=== PATIENT | male | born 1995 | race African-American/Black ===

== ENCOUNTER 2023-07-07 00:59 | Emergency (ER) | payer BC, SELFPAY ==
[2023-07-07 01:01] VITALS: BP 137/82; PULSE 86; RESP 18; TEMP 37.1; O2SAT 99; BMI 20.1
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
[2023-07-07] MEDS: Ibuprofen 400 MG Tablet 800 MG PO (02:25)
--- OUTSIDE RECORDS SUMMARY | 2023-07-07 02:36 | XMS RPT_ITS | CCD ---
Author Name Unknown Address [address] [facility] [address] [place] [address] Organization [facility] Care Team Providers Care Servicer Name Role Phone Unavailable Primary Care Provider UnavailJUDE Mora Attending Unavailable NELSON SAUCEDO Referring Unavailable ASIM GUEVARA Primary Care Unavailable NELSON SAUCEDO Referring Unavailable Medications Current Medications Medication Drug Class(es) Dates Sig (Normalized) Sig (Original) naproxen 375 mg oral tablet (4 sources) Nonsteroidal Anti-inflammatory Drug Start: 03-07-2022 End: 03-22-2022 take 1 tablet by mouth twice daily at mealtime for pain naproxen (NAPROSYN) 375 mg tablet Indications: Acute pain of left knee , Injury of right knee, initial encounter , Sprain of left knee, unspecified ligament, initial encounter Take 1 tablet by mouth twice daily with meals for 15 days. for pain. Take with food. 30 tablet 0 03/07/2022 03/22/2022 Active Problems Problem Classification Problem Date Documented Date Episodic/Chronic Immunizations and screening for infectious disease (2 sources) Patient encounter status; Translations: [Encounter for screening for human immunodeficiency virus [HIV]] Episodic Joint disorders and dislocations; trauma-related (8 sources) Tear of medial meniscus of knee; Translations: [Other tear of medial meniscus, current injury, left knee, initial encounter] Onset: 06-04-2023 Episodic Osteoarthritis (1 source) Osteoarthritis of left knee joint; Translations: [Unilateral primary osteoarthritis, left knee] Chronic Other injuries and conditions due to external causes (2 sources) Injury of right knee; Translations: [Unspecified injury of right lower leg, initial encounter] Episodic Other non-traumatic joint disorders (2 sources) Pain in left knee; Translations: [Pain in joint, lower leg] Episodic Other screening for suspected conditions (not mental disorders or infectious disease) (2 sources) Serum creatinine raised; Translations: [Other specified abnormal findings of blood chemistry] Onset: 06-10-2023 06-05-2023 Episodic Sprains and strains (2 sources) Sprain of left knee; Translations: [Sprain of unspecified site of left knee, initial encounter] Episodic Results Test Name Value Interpretation Reference Range Facil ity Vital Signs Date Time Vital Sign Value Performing Clinician Joselito melo 06-04-2023 08:55-0500 Body height 181.6 cm Jude Swartz MD Work Phone: [facility] 06-04-2023 08:55-0500 Body temperature 98.01 [degF] Jude Swartz MD Work Phone: [facility] 06-04-2023 08:55-0500 Body weight 61.69 kg Jude Swartz MD Work Phone: [facility] 06-04-2023 08:55-0500 Diastolic blood pressure 72 mm[Hg] Jude Swartz MD Work Phone: [facility] 06-04-2023 08:55-0500 Heart rate 73 /min Jude Swartz MD Work Phone: [facility] 06-04-2023 08:55-0500 Respiratory rate 16 /min Jude Swartz MD Work Phone: [facility] 06-04-2023 08:55-0500 SaO2% (BldA) [Mass fraction] 98 % Jude Swartz MD Work Phone: [facility] 06-04-2023 08:55-0500 Systolic blood pressure 126 mm[Hg] Jude Swartz MD Work Phone: [facility] 04-29-2022 08:48-0400 Body height 190.5 cm Ravi Rivera MD Work Phone: [facility] 04-29-2022 08:48-0400 Body weight 62.6 kg Ravi Rivera MD Work Phone: [facility] 04-29-2022 08:48-0400 Respiratory rate 20 /min Ravi Rivera MD Work Phone: [facility] 03-18-2022 07:41-0400 Body height 182.9 cm Ravi Rivera MD Work Phone: [facility] 03-18-2022 07:41-0400 Body weight 62.6 kg Ravi Rivera MD Work Phone: [facility] 03-18-2022 07:41-0400 Respiratory rate 20 /min Ravi Rivera MD Work Phone: [facility] 03-07-2022 15:36-0400 Body height 181 cm Kenyon Patrick MD Work Phone: [facility] 03-07-2022 15:36-0400 Body weight 62.6 kg Kenyon Patrick MD Work Phone: [facility] 03-07-2022 15:36-0400 Diastolic blood pressure 72 mm[Hg] Kenyon Patrick MD Work Phone: [facility] 03-07-2022 15:36-0400 Heart rate 69 /min Kenyon Patrick MD Work Phone: [facility] 03-07-2022 15:36-0400 Respiratory rate 18 /min Kenyon Patrick MD Work Phone: [facility] 03-07-2022 15:36-0400 SaO2% (BldA) [Mass fraction] 99 % Kenyon Patrick MD Work Phone: [facility] 03-07-2022 15:36-0400 Systolic blood pressure 133 mm[Hg] Kenyon Patrick MD Work Phone: [facility] Encounters Encounter Date Encounter Type Care Provider Facility Start: 06-10-2023 End: 06-11-2023 ambulatory ASIM GUEVARA Facility:[facility] Start: 06-05-2023 ambulatory Jude Swartz MD Work Phone: [facility] ([facility]) Procedures Date Procedure Procedure Detail Performing Clinician Start: 06-10-2023 Antibody screen JUDE SWARTZ Plan of Treatment Date Care Activity Detail Author Start: 06-04-2024 Covid-19 Vaccine (#1) Covid-19 Vacci ne (#1) [facility] Payers Date Payer Category Payer Unknown [id number] 2022 Unknown [id number] Social History Date Type Detail Facility [facility]: [facility]07[facility] Start: 03-07-2022 Tobacco use and exposure Smoke less tobacco non-user [facility] Start: 03-07-2022 End: 06-04-2023 Alcohol intake Current drinker of alcohol (finding) [facility] Start: 03-07-2022 History SDOH Alcohol Comment Very rare [facility] Start: 1995 Sex Assigned At Not on file [facility] Start: 02-25-2022 End: 04-29-2022 Exposure to SARS-CoV-2 (event) Not sure [facility] Start: 06-04-2023 History of Social function [facility] Start: 06-04-2023 Tobacco use panel [facility] Adult Depression Scr eening Assessment 0 [facility] (I/We) worried whemarielle er (my/our) food would run out before (I/we) got money to buy more. Never true [facility] Clinical Notes 03-07-2022 to 06-05-2023 Telephone Encounter - Jude Swartz MD - 06/05/2023 7:10 PM Nelson Montelongo MD - 06/04/2023 2:48 PM Jude Shea MD - 06/04/2023 9:14 AM ESTPatient Instructions Note Date & Type Note Facility 06-05-2023 Miscellaneous Notes Please let the patient know that his labs are all normal except his creatinine which is slightly elevated above the normal levels, although it does appear to be similar to what it was 1 year ago. The patient is advised to maintain good oral hydration levels. We will recheck his kidney function and check urine tests next week to monitor if his creatinine levels remain stable or not. documented in this encounter [facility] 06-04-2023 Note HNO ID: [id number] Author: Nelson Saucedo MD Service: ? Author Type: Physician Type: Progress Notes Filed: 06/04/2023 2:48 PM Note Text: Attending Note I discussed with resident. The patient was not examined by the attending. I reviewed the resident's note. I agree with the resident's assessment and plan unless otherwise noted. Signature: Nelson Saucedo MD Date: 06/04/2023. Time: 2:48 PM [facility] 06-04-2023 History of Presen t illness Narrative Attending Note I discussed with resident. The patient was not examined by the attending. I reviewed the resident's note. I agree with the resident's assessment and plan unless otherwise noted. Signature: Nelson Saucedo MD Date: 06/04/2023. Time: 2:48 PM Images from the original note were not included. [facility] Jude Swartz MD ASSESSMENT/PLAN: 1. Encounter for medical examination to establish care - ICD9: V70.9, ICD10: Z00.00 (primary diagnosis) - Counseled on healthy diet and regular exercise - CBC - COMP METABOLIC PANEL - LIPID PANEL BASIC - HGB A1C 2. Acute medial meniscus tear of left knee, sequela - ICD9: 905.7, ICD10: S83.242S -Was told by ortho that he needs surgery 1 year ago -Patient elected not to have surgery -Still has mild residual pain Jude Swartz MD SUBJECTIVE: Alan Álvarez is a 28 year old male here today to establish care He reports doing well in general. Denies any acute symptoms. He says that he was diagnosed with a left medial meniscal year > 1 year ago and was following with ortho who recommended surgery but he decided not to do it. His injury at the time was work-related. He reports mild residual pain but says he still doesn't want surgery. He is worries about having DM since both of his parents have DM. He is not sure if they have DM1 or DM2. He doesn't want any vaccinations today. Denies any other complaints. PAST MEDICAL HISTORY Diagnosis Date Left knee pain Malaria 08/2020 No past surgical history on file. Social History Tobacco Use Smoking status: Never Smokeless tobacco: Never Vaping Use Vaping Use: Never used Substance Use Topics Alcohol use: Yes Comment: Very rare Drug use: Never FAMILY HISTORY Problem Relation Age of Onset Diabetes Mother 67 Diabetes Father 55 No Known Problems Sister No Known Problems Sister No Known Problems Brother No Known Problems Brother PAIN EVALUATION 06/04/2023 0854 Pain Level: 4 ALLERGIES No Known Allergies No current outpatient medications on file. No current facility-administered medications for this visit. I have confirmed and edited as necessary the chief complaint, medications, past medical, family and social histories. Review of Systems Constitutional: Negative. HENT: Negative. Eyes: Negative. Respiratory: Negative. Cardiovascular: Negative. Gastrointestinal: Negative. Endocrine: Negative. Genitourinary: Negative. Musculoskeletal: Left knee pain Skin: Negative. Allergic/Immunologic: Negative. Neurological: Negative. Hematological: Negative. Psychiatric/Behavioral: Negative. OBJECTIVE: BP 126/72 Pulse 73 Temp 36.7 C (98 F) Resp 16 Ht 181.6 cm (5' 11.5 ) Wt 61.7 kg (136 lb) SpO2 98% BMI 18.70 kg/m Physical Exam Constitutional: General: He is not in acute distress. Eyes: Conjunctiva/sclera: Conjunctivae normal. Cardiovascular: Rate and Rhythm: Normal rate and regular rhythm. Heart sounds: Normal heart sounds. No murmur heard. Pulmonary: Effort: Pulmonary effort is normal. No respiratory distress. Breath sounds: Normal breath sounds. No wheezing. Abdominal: General: There is no distension. Musculoskeletal: Right lower leg: No edema. Left lower leg: No edema. Neurological: General: No focal deficit present. Mental Status: He is oriented to person, place, and time. Psychiatric: Mood and Affect: Mood normal. PHQ-9 All Questions 03/07/2022 06/04/2023 Little interest or pleasure in doing things - 0 Feeling down, depressed, or hopeless - 0 PHQ-9 Score 0 - (0-4) minimal depression, (5-9) mild depression, (10-14) moderate depression, (15-19) moderately severe depression, (20-27) severe depression Screening tool completed by patient. Based on the PHQ-9 score and patient interview, patient is not at risk for depression. Screening tool discussed with patient, and I recommended no further intervention at this time. Return in about 1 year (around 06/04/2024). Discussed the above with the patient and my preceptor using shared decision-making. The patient is in agreement with the diagnostic and treatment plans. Provider: Jude Swartz MD Signed on: June 04, 2023 9:14 AM documented in this encounter [facility] 06-04-2023 Note HNO ID: [id number] Author: Jude Swartz MD Service: ? Author Type: Resident Type: Progress Notes Filed: 06/04/2023 9:22 AM Note Text: [facility] Jude Swartz MD ASSESSMENT/PLAN: 1. Encounter for medical examination to establish care - ICD9: V70.9, ICD10: Z00.00 (primary diagnosis) - Counseled on healthy diet and regular exercise - CBC - COMP METABOLIC PANEL - LIPID PANEL BASIC - HGB A1C 2. Acute medial meniscus tear of left knee, sequela - ICD9: 905.7, ICD10: S83.242S -Was told by ortho that he needs surgery 1 year ago -Patient elected not to have surgery -Still has mild residual pain Jude Swartz MD SUBJECTIVE: Alan Álvarez is a 28 year old male here today to establish care He reports doing well in general. Denies any acute symptoms. He says that he was diagnosed with a left medial meniscal year > 1 year ago and was following with ortho who recommended surgery but he decided not to do it. His injury at the time was work-related. He reports mild residual pain but says he still doesn't want surgery. He is worries about having DM since both of his parents have DM. He is not sure if they have DM1 or DM2. He doesn't want any vaccinations today. Denies any other complaints. PAST MEDICAL HISTORY Diagnosis Date Left knee pain Malaria 08/2020 No past surgical history on file. Social History Tobacco Use Smoking status: Never Smokeless tobacco: Never Vaping Use Vaping Use: Never used Substance Use Topics Alcohol use: Yes Comment: Very rare Drug use: Never FAMILY HISTORY Problem Relation Age of Onset Diabetes Mother 67 Diabetes Father 55 No Known Problems Sister No Known Problems Sister No Known Problems Brother No Known Problems Brother PAIN EVALUATION 06/04/2023 0854 Pain Level: 4 ALLERGIES No Known Allergies No current outpatient medications on file. No current facility-administered medications for this visit. I have confirmed and edited as necessary the chief complaint, medications, past medical, family and social histories. Review of Systems Constitutional: Negative. HENT: Negative. Eyes: Negative. Respiratory: Negative. Cardiovascular: Negative. Gastrointestinal: Negative. Endocrine: Negative. Genitourinary: Negative. Musculoskeletal: Left knee pain Skin: Negative. Allergic/Immunologic: Negative. Neurological: Negative. Hematological: Negative. Psychiatric/Behavioral: Negative. OBJECTIVE: BP 126/72 Pulse 73 Temp 36.7 ?C (98 ?F) Resp 16 Ht 181.6 cm (5' 11.5 ) Wt 61.7 kg (136 lb) SpO2 98% BMI 18.70 kg/m? Physical Exam Constitutional: General: He is not in acute distress. Eyes: Conjunctiva/sclera: Conjunctivae normal. Cardiovascular: Rate and Rhythm: Normal rate and regular rhythm. Heart sounds: Normal heart sounds. No murmur heard. Pulmonary: Effort: Pulmonary effort is normal. No respiratory distress. Breath sounds: Normal breath sounds. No wheezing. Abdominal: General: There is no distension. Musculoskeletal: Right lower leg: No edema. Left lower leg: No edema. Neurological: General: No focal deficit present. Mental Status: He is oriented to person, place, and time. Psychiatric: Mood and Affect: Mood normal. PHQ-9 All Questions 03/07/2022 06/04/2023 Little interest or pleasure in doing things - 0 Feeling down, depressed, or hopeless - 0 PHQ-9 Score 0 - (0-4) minimal depression, (5-9) mild depression, (10-14) moderate depression, (15-19) moderately severe depression, (20-27) severe depression Screening tool completed by patient. Based on the PHQ-9 score and patient interview, patient is not at risk for depression. Screening tool discussed with patient, and I recommended no further intervention at this time. Return in about 1 year (around 06/04/2024). Discussed the above with the patient and my preceptor using shared decision-making. The patient is in agreement with the diagnostic and treatment plans. Provider: Jude Swartz MD Signed on: June 04, 2023 9:14 AM [facility] 06-04-2023 Instructions Jude Swartz MD - 06/04/2023 9:12 AM EST -Please do the blood tests ordered -Please follow up for annual check up in 1 year documented in this encounter [facility] 04-29-2022 History of Presen t illness Narrative Chief Complaint: Left knee pain Consulting Physician: Ravi Rivera History: Alan is a 27 year old male who presents after undergoing a MRI scan of his left knee. Patient reports that he is feeling somewhat better at this point in time. He has been taking Naprosyn for pain management purposes. Patient reports some popping clicking. His pain is generalized in nature but has more pain along the medial aspect of his knee. Prolonged ambulation, prolonged standing and running activities are bothersome as well. He reports of popping, clicking, and catching with activities. Locking usually does not occur. He denies any previous injury and denies any hip, back or ankle pain. He denies any radicular pain. No numbness or tingling noted. No fevers, chills, night sweats or other constitutional symptoms. He reports occasional swelling. Stiffness is sometimes noted with prolonged sitting activities. He quantitates the pain as 2/10. Review of Systems: GENERAL: Well developed, well nourished. No acute distress PAIN: Negative for pain, history of chronic pain or current treatment for chronic pain conditions CARDIOVASCULAR: Negative for chest pain, leg swelling and palpations. MSK: Negative for joint pain, swelling, back pain, muscle pain. SKIN: Negative for lesions, rash, itching, metal sensitivity NEURO: Negative for seizure, trauma, numbness/tingling of extremities. ENDOCRINE: Negative for Diabetes Type 1 and Type 2 HEMATOLOGY: Negative for excessive bleeding, clots, bleeding disorders. Physical Examination: Patient is alert and oriented and in no acute distress. He exhibits a mild antalgic gait and normal alignment. Skin is intact. He has full extension and lacks mild flexion as compared to the other side. A small effusion is noted. Upon palpating the patella, he does not report any pain. Normal Q-angle is noted. Normal patellar glide and passive patellar tilt. A negative patellar apprehension sign is seen. Patellofemoral crepitation is noted with ROM of the knee. he exhibits some mild quadriceps atrophy as compared to the other side. Palpation along the medial joint line reveals pain while the lateral joint line reveals no pain with palpation. A Naila s test is positive along the medial joint. A negative Garret s is noted. Negative anterior and posterior drawers are seen. He has good stability with varus and valgus stress at 0 and 30 degrees. No increase in ER is seen at 30 or 90 degrees. Full ROM of both hips and ankles are noted. The patient has 5/5 motor strength with downgoing Babinski s and symmetric reflexes. Good pulses and cap refill are seen. Gross sensation intact. The opposite joint reveals full ROM, no pain with palpation, good stability and good strength. MRI Examination: MRI examination and report reveals the patient has evidence of a grade 3 signal along the posterior horn of his medial meniscus. There is a vertically oriented tear which extends into the medial meniscal body. Has some chondral changes along the patellofemoral joint. Ligament structures are intact. Assessment: Tear of medial meniscus of left knee, current, unspecified tear type, initial encounter (primary encounter diagnosis) Primary osteoarthritis of left knee Plan: I had a long discussion with Alan butts regarding his diagnosis and treatment plan. Patient was given both operative and nonoperative options at this point in time. Patient wants to talk this over with his brother in terms of what he wants to do. He understands that there is a possibility of of a meniscal repair versus partial meniscectomy. He understands the physical therapy implications with either. He also understands the time off of work. He wants to proceed with operative management he will give me a call. The patient understands the diagnosis, treatment options both operative and non-operative, their associated risks, complications, benefits, outcomes and rehabilitation, and failures and wishes to proceed with surgical intervention. The surgery would consist of left knee arthroscopy with partial medial meniscectomy versus repair, and possible chondroplasty. He understands the possibility of meniscal repair depending on certain factors which were discussed in the office. Possible open repair was discussed. He understands that surgery cannot be guaranteed to relieve all the symptoms and there is a small but unlikely chance that the symptoms could be worse rather than better. He understands the risks as significant as can occur, including but no limited to the additional risks of loss of limb, infection, deep venous thrombosis, pulmonary embolism, failure of this procedure, wound healing problems, neurovascular injury, continued pain, weakened and muscle atrophy, reflex sympathetic dystrophy and scarring and stiffness. He understands, all questions were answered, and the patient has been provided an informed consent. The patient wishes to proceed. Ravi Rivera MD documented in this encounter [facility] 04-04-2022 History of Presen t illness Narrative Radiology Service Progress Note PATIENT NAME: Alan Álvarez DATE OF SERVICE: April 04, 2022 TIME: 6:54 AM PATIENT IDENTITY VERIFICATION COMPLETED USING TWO (2) IDENTIFIERS: Name and Date of confirmed by patient verbally. FALL SCREENING: Has the patient had 2 falls in the last year or 1 fall with injury or currently using an Ambulatory Assistive Device (Walker, Cane, Wheelchair, Crutches, etc.)? No PATIENT GENDER DATA: Male PATIENT RELEVANT IMPLANT DATA REVIEWED: Not Applicable RADIOLOGY DEPARTMENT: MR; Exam(s) Completed: Lower MSK: Knee, left PERIPHERAL IV DATA: Not applicable SIGNED BY: RT Geo(R) April 04, 2022 6:54 AM documented in this encounter [facility] 03-18-2022 History of Presen t illness Narrative Chief Complaint: Left knee pain Consulting Physician: Kenyon Patrick History: Alan is a 26 year old male who presents with several months of left knee pain. Patient reports he was getting up from a squatted position when he felt a pop along the medial aspect of his knee. Ever since he has had difficulty with twisting turning and pivoting activities. Patient has had pain along the medial aspect of his knee without radiation. He reports pain that has progressively worsened. He states the pain is located along the medial side of the knee. The pain is non-radiating in nature and intermittent. The pain is typically dull but can be sharp especially with twisting and pivoting activities. Prolonged ambulation, prolonged standing and running activities are bothersome as well. He reports of popping, clicking, and catching with activities. Locking usually does not occur. He denies any previous injury and denies any hip, back or ankle pain. He denies any radicular pain. No numbness or tingling noted. No fevers, chills, night sweats or other constitutional symptoms. He reports occasional swelling. Stiffness is sometimes noted with prolonged sitting activities. He quantitates the pain as 5/10. Patient has tried some anti-inflammatory medications. Patient reports he cannot play soccer secondary to his medial sided knee pain. Review of Systems: GENERAL: Well developed, well nourished. No acute distress PAIN: Negative for pain, history of chronic pain or current treatment for chronic pain conditions CARDIOVASCULAR: Negative for chest pain, leg swelling and palpations. MSK: Negative for joint pain, swelling, back pain, muscle pain. SKIN: Negative for lesions, rash, itching, metal sensitivity NEURO: Negative for seizure, trauma, numbness/tingling of extremities. ENDOCRINE: Negative for Diabetes Type 1 and Type 2 HEMATOLOGY: Negative for excessive bleeding, clots, bleeding disorders. Physical Examination: Patient is alert and oriented and in no acute distress. He exhibits a mild antalgic gait and normal alignment. Skin is intact. He has full extension and lacks mild flexion as compared to the other side. A small effusion is noted. Upon palpating the patella, he does not report any pain. Normal Q-angle is noted. Normal patellar glide and passive patellar tilt. A negative patellar apprehension sign is seen. Patellofemoral crepitation is noted with ROM of the knee. he exhibits some mild quadriceps atrophy as compared to the other side. Palpation along the medial joint line reveals pain while the lateral joint line reveals no pain with palpation. A Naila s test is positive along the medial joint. A negative Garret s is noted. Negative anterior and posterior drawers are seen. He has good stability with varus and valgus stress at 0 and 30 degrees. No increase in ER is seen at 30 or 90 degrees. Full ROM of both hips and ankles are noted. The patient has 5/5 motor strength with downgoing Babinski s and symmetric reflexes. Good pulses and cap refill are seen. Gross sensation intact. The opposite joint reveals full ROM, no pain with palpation, good stability and good strength. X-ray Examination: PA 45 degree weightbearing, lateral, and sunrise views were ordered, obtained and reviewed today. The radiographs show Normal alignment and mild loss of patellofemoral joint space. There is no evidence of fracture, avulsion, dislocation or evi tumor. The patellae are located well in the trochlea. The patellae reveal some osteophyte formation and mild joint space narrowing. Assessment: Tear of medial meniscus of left knee, current, unspecified tear type, initial encounter (primary encounter diagnosis) Plan: I had a long discussion with Alan today regarding his diagnosis and treatment plan. Patient had a traumatic injury occurred to his left knee. Patient cannot play any soccer activities such as secondary to his pain. He has tried some anti-inflammatory medications without relief of his symptoms. He exhibits mechanical symptoms and pain consistent with meniscal pathology as a result a MRI is recommended. He will return for f/u for further evaluation once the MRI is obtained. In the meantime he will ice his knee for 20 minutes 2-3 x/ daily and was given a home exercise program emphasizing quadriceps strengthening and hamstring stretching. For pain management purposes he may take OTC NSaids such as Advil or Tylenol. Explanation of the risks, benefits, complications and alternative treatment were explained. The risks that were explained included but were not limited to: GI disturbance as serious as GI bleed and . Liver damage. Kidney damages including renal failure. He was also told that if any unusual symptoms develop, that the medication should be stopped immediately and that his primary care physician as well as our office should be notified. If he takes this medication correction, he understands the need for medication monitoring through his primary care physician. He is aware of the potential risks and side effects of this medication as well as the expected benefits, and wishes to proceed with its use. Ravi Rivera MD documented in this encounter [facility] 03-07-2022 Miscellaneous Notes Sports medicine referral sent Confirmation number: [id number] documented in this encounter [facility] 03-07-2022 History of Presen t illness Narrative Images from the original note were not included. Dr. Kenyon Concepcion M.D. Primary Care [facility] Dr. Kenyon Concepcion M.D. [address], [place], [address] Dept. Dept. Visit Date: March 07, 2022 Mr.Francis Álvarez Date of : 1995 MRN/E #: [id number] Chief Complaint: Patient presents with: Establish Care: First time here. There are no exam notes on file for this visit. History of Present Illness Alan Álvarez is a 26 year old male. New patient visit, to establish with new PCP. Pt last PCP, none. Pt last seen by doctor >2 years. [place] to country, , came form [facility]. The history is provided by the patient. Musculoskeletal Problem This is a new problem. Pertinent negatives include no abdominal pain, arthralgias (none other than LT knee), chest pain, congestion, coughing, diaphoresis, fatigue, fever, headaches, myalgias, nausea, rash, sore throat or vomiting. Left injury: Yes Left condition: Acute (while squatting, raising up felt a pop in knee, and pain) Left severity: Moderate Left progression: Unchanged (after injury knee swell for 1 day. Pain all the time for few days, then improved. Now acute pain with twisting or squatting) Patient reports that left knee feels stable. Patient reports feeling left knee catching. Left job related: No Left aggravating factors: Bending of twisting, excessive training, rapid change of direction and change in inclines. Left alleviating factors: None. PAST MEDICAL HISTORY Diagnosis Date Malaria 08/2020 History reviewed. No pertinent surgical history. Social History Tobacco Use Smoking status: Never Smokeless tobacco: Never Vaping Use Vaping Use: Never used Substance Use Topics Alcohol use: Yes Comment: Very rare Drug use: Never Social History Social History Narrative Moved from [facility], . Came by himself. Lives with brother and brother's . They here since 2020. Family History Reviewed Including Cardiac Diseases, Psychiatric Diseases, & Substance Abuse Problem: Diabetes Relation: Mother Age of Onset: 67 Problem: Diabetes Relation: Father Age of Onset: 55 Problem: No Known Problems Relation: Sister Age of Onset: (Not Specified) Problem: No Known Problems Relation: Sister Age of Onset: (Not Specified) Problem: No Known Problems Relation: Brother Age of Onset: (Not Specified) Problem: No Known Problems Relation: Brother Age of Onset: (Not Specified) ALLERGIES No Known Allergies No current outpatient medications on file prior to visit. No current facility-administered medications on file prior to visit. Review of Systems Review of Systems Constitutional: Negative for activity change, appetite change, diaphoresis, fatigue, fever and unexpected weight change. HENT: Negative for congestion, dental problem, ear discharge, ear pain, hearing loss, nosebleeds, rhinorrhea, sneezing, sore throat and trouble swallowing. Eyes: Negative for pain, redness and visual disturbance. Respiratory: Negative for cough, chest tightness, shortness of breath and wheezing. Cardiovascular: Negative for chest pain, palpitations and leg swelling. Gastrointestinal: Negative for abdominal pain, blood in stool, constipation, diarrhea, nausea and vomiting. Endocrine: Negative for cold intolerance, heat intolerance, polydipsia and polyuria. Genitourinary: Negative for difficulty urinating, dysuria, frequency and hematuria. Musculoskeletal: Positive for back pain (mild, comes and goes, thoracic spine). Negative for arthralgias (none other than LT knee), gait problem and myalgias. Skin: Negative for color change and rash. Allergic/Immunologic: Negative for environmental allergies and food allergies. Neurological: Negative for dizziness, syncope, light-headedness and headaches. Hematological: Negative for adenopathy. Does not bruise/bleed easily. Psychiatric/Behavioral: Negative for behavioral problems and sleep disturbance. The patient is not nervous/anxious. Vital Signs BP 133/72 Pulse 69 Resp 18 Ht 5' 11.26 (1.81m) Wt 138 lb (62.6kg) SpO2 99% BMI 19.11 kg/(m^2). Physical Exam Constitutional: General: He is not in acute distress. Appearance: Normal appearance. He is well-developed. He is not ill-appearing or diaphoretic. HENT: Head: Normocephalic and atraumatic. Hair is normal. Right Ear: Hearing, tympanic membrane, ear canal and external ear normal. Left Ear: Hearing, tympanic membrane, ear canal and external ear normal. Nose: No nasal deformity or rhinorrhea. Mouth/Throat: Mouth: No oral lesions. Pharynx: No oropharyngeal exudate or posterior oropharyngeal erythema. Tonsils: No tonsillar exudate. 0 on the right. 0 on the left. Eyes: General: Lids are normal. No scleral icterus. Right eye: No discharge. Left eye: No discharge. Extraocular Movements: Right eye: Normal extraocular motion. Left eye: Normal extraocular motion. Conjunctiva/sclera: Right eye: Right conjunctiva is not injected. No exudate. Left eye: Left conjunctiva is not injected. No exudate. Pupils: Pupils are equal, round, and reactive to light. Neck: Thyroid: No thyroid mass or thyromegaly. Vascular: No carotid bruit. Trachea: No tracheal tenderness or tracheal deviation. Cardiovascular: Rate and Rhythm: Normal rate and regular rhythm. No extrasystoles are present. Pulses: Normal pulses. Heart sounds: S1 normal and S2 normal. No murmur heard. Pulmonary: Effort: No respiratory distress. Breath sounds: No decreased breath sounds, wheezing, rhonchi or rales. Abdominal: General: Bowel sounds are normal. There is no abdominal bruit. Palpations: Abdomen is soft. There is no mass. Tenderness: There is no abdominal tenderness. Musculoskeletal: Right shoulder: Normal range of motion. Normal strength. Left shoulder: Normal range of motion. Normal strength. Right elbow: No deformity. Normal range of motion. Left elbow: No deformity. Normal range of motion. Right wrist: No tenderness. Normal range of motion. Left wrist: No tenderness. Normal range of motion. Cervical back: Full passive range of motion without pain. No rigidity, tenderness or bony tenderness. Normal range of motion. Thoracic back: No deformity, tenderness or bony tenderness. Normal range of motion. Lumbar back: No deformity or tenderness. Normal range of motion. Right hip: Normal range of motion. Normal strength. Left hip: Normal range of motion. Normal strength. Right knee: No swelling. Normal range of motion. No tenderness. Left knee: No swelling, deformity, effusion, bony tenderness or crepitus. Decreased range of motion (pain with full flexion). Tenderness present over the medial joint line and lateral joint line. Normal patellar mobility. Instability Tests: Anterior drawer test negative. Posterior drawer test negative. Right ankle: No swelling. Normal range of motion. Left ankle: No swelling. Normal range of motion. Lymphadenopathy: Cervical: No cervical adenopathy. Skin: General: Skin is warm. Capillary Refill: Capillary refill takes less than 2 seconds. Findings: No lesion or rash. Neurological: Mental Status: He is alert and oriented to person, place, and time. Cranial Nerves: No cranial nerve deficit. Sensory: No sensory deficit. Gait: Gait normal. Deep Tendon Reflexes: Reflexes are normal and symmetric. Psychiatric: Attention and Perception: He is attentive. Speech: Speech normal. Behavior: Behavior normal. Behavior is cooperative. Thought Content: Thought content normal. Visit Diagnoses (Z00.01) Encounter for routine adult health examination with abnormal findings (primary encounter diagnosis) (M25.562) Acute pain of left knee (S89.91XA) Injury of right knee, initial encounter (S83.92XA) Sprain of left knee, unspecified ligament, initial encounter (Z11.4) Screening for HIV (human immunodeficiency virus) (Z11.59) Special screening examination for viral disease Assessment and Plan Alan was seen today for establish care. Diagnoses and all orders for this visit: Encounter for routine adult health examination with abnormal findings - HIV 1 2 COMBO(AG/AB),WITH REFLEX TO DIFFERENTIATION; Future - HEP C AB IA W/CONF SCRN; Future - COMP METABOLIC PANEL; Future - LIPID PANEL BASIC; Future - CBC; Future - HGB A1C; Future - TSH BLD; Future - VITAMIN D 25 HYDROXY; Future Acute pain of left knee - naproxen (NAPROSYN) 375 mg tablet; Take 1 tablet by mouth twice daily with meals for 15 days. for pain. Take with food. - CONSULT TO SPORTS MEDICINE; Future Injury of right knee, initial encounter - naproxen (NAPROSYN) 375 mg tablet; Take 1 tablet by mouth twice daily with meals for 15 days. for pain. Take with food. - CONSULT TO SPORTS MEDICINE; Future Sprain of left knee, unspecified ligament, initial encounter - naproxen (NAPROSYN) 375 mg tablet; Take 1 tablet by mouth twice daily with meals for 15 days. for pain. Take with food. - CONSULT TO SPORTS MEDICINE; Future Screening for HIV (human immunodeficiency virus) - HIV 1 2 COMBO(AG/AB),WITH REFLEX TO DIFFERENTIATION; Future Special screening examination for viral disease - HEP C AB IA W/CONF SCRN; Future Medication orders placed this encounter naproxen (NAPROSYN) 375 mg tablet Sig: Take 1 tablet by mouth twice daily with meals for 15 days. for pain. Take with food. Dispense: 30 tablet Refill: 0 Discussed above plan with patient and/or caregiver. Patient and/or caregiver agreeable with above plan. Follow up visit Return if symptoms worsen or fail to improve. Kenyon Patrick MD, signed on March 07, 2022 3:44 PM documented in this encounter [facility] Tear of medial meniscus of left knee, current, unspecified tear type, initial encounter- Primary [facility] Diagnosis Acute pain of left knee Injury of right knee, initial encounter Sprain of left knee, unspecified ligament, initial encounter [facility] Diagnosis Tear of medial meniscus of left knee, current, unspecified tear type, initial encounter [facility]* Diagnosis Tear of medial meniscus of left knee, current, unspecified tear type, initial encounter- Primary Primary osteoarthritis of left knee Primary localized osteoarthrosis, lower leg [facility] Diagnosis Encounter for medical examination to establish care- Primary Acute medial meniscus tear of left knee, sequela [facility] Diagnosis Encounter for medical examination to establish care- Primary [facility] Diagnosis Elevated serum creatinine- Primary Other nonspecific findings on examination of blood documented in this encounter [facility] Reason for Referral Specialty Diagnoses / Procedures Referred By Contac t Referred To Contact Sports Medicine Diagnoses Acute pain of left knee Injury of right knee, initial encounter Sprain of left knee, unspecified ligament, initial encounter Procedures CONSULT TO SPORTS MEDICINE Kenyon Patrick MD [address] [facility] [address] [address] [place] [address] Referral ID Status Reason Start Date Expiration Date Visits Requested Visits Authorized [id number] Ref Not Required PCP Requested Referral 03/07/2022 03/07/2023 1 1 Specialty Diagnoses / Procedures Referred By Jv lockett Referred To Contact MR IMAGING Diagnoses Tear of medial meniscus of left knee, current, unspecified tear type, initial encounter Procedures MRI KNEE WO IVCON LT MRI ANY JT LOWER EXTREM W/O CONTRAST MATRL Ravi Rivera MD [address] [place] [address] Mr Imaging Referral ID Status Reason Start Date Expiration Date Visits Requested Visits Authorized [id number] Additional Clinical Info Needed Auto-Generat ed Referral 03/18/2022 04/17/2023 1 1 Specialty Diagnoses / Procedures Referred By Jv lockett Referred To Contact XR IMAGING Diagnoses Tear of medial meniscus of left knee, current, unspecified tear type, initial encounter Procedures XR KNEE 3V FLEX/LAT/MERCH LEFT (AK) RADIOLOGIC EXAMINATION KNEE 3 VIEWS Ravi Rivera MD [address] [place] [address] Xr Imaging Referral ID Status Reason Start Date Expiration Date Visits Requested Visits Authorized [id number] Pending Review Auto-Generat ed Referral 03/18/2022 04/17/2023 1 1 Referral ID Status Reason Start Date Expiration Date V isits Requested Visits Authorized [id number] Closed Auto-Generate d Referral 03/18/2022 05/17/2022 1 1 Summary Purpose Family History No Family History Records Found Advance Directives No Advanced Directives Records Found Additional Source Comments Source Comments (unrecognize d section and content) In the event this informatio n is protected by the Federal Confidentiality of Alcohol and Drug Abuse Patient Records regulations: The Federal rules restrict any use of the information to criminally investigate or prosecute any alcohol or drug abuse patient.[facility] the event this information is protected by the Federal Confidentiality of Alcohol and Drug Abuse Patient Records regulations: The Federal rules restrict any use of the information to criminally investigate or prosecute any alcohol or drug abuse patient.[facility] the event this information is protected by the Federal Confidentiality of Alcohol and Drug Abuse Patient Records regulations: The Federal rules restrict any use of the information to criminally investigate or prosecute any alcohol or drug abuse patient.[facility] the event this information is protected by the Federal Confidentiality of Alcohol and Drug Abuse Patient Records regulations: The Federal rules restrict any use of the information to criminally investigate or prosecute any alcohol or drug abuse patient.[facility] the event this information is protected by the Federal Confidentiality of Alcohol and Drug Abuse Patient Records regulations: The Federal rules restrict any use of the information to criminally investigate or prosecute any alcohol or drug abuse patient.[facility] the event this information is protected by the Federal Confidentiality of Alcohol and Drug Abuse Patient Records regulations: The Federal rules restrict any use of the information to criminally investigate or prosecute any alcohol or drug abuse patient.[facility] the event this information is protected by the Federal Confidentiality of Alcohol and Drug Abuse Patient Records regulations: The Federal rules restrict any use of the information to criminally investigate or prosecute any alcohol or drug abuse patient.[facility] the event this information is protected by the Federal Confidentiality of Alcohol and Drug Abuse Patient Records regulations: The Federal rules restrict any use of the information to criminally investigate or prosecute any alcohol or drug abuse patient.[facility] the event this information is protected by the Federal Confidentiality of Alcohol and Drug Abuse Patient Records regulations: The Federal rules restrict any use of the information to criminally investigate or prosecute any alcohol or drug abuse patient.[facility] Reason for Visit (unrecogniz ed section and content) Reason Comments Establish Care First time here. Reason Comments New Knee Pain Swelling Reason Comments Refill Request Specialty Diagnoses / Procedures Referred By Jv lockett Referred To Contact MR IMAGING Diagnoses Tear of medial meniscus of left knee, current, unspecified tear type, initial encounter Procedures MRI KNEE WO IVCON LT MRI ANY JT LOWER EXTREM W/O CONTRAST Ravi Eugene MD [address] [facility] [address] [place] [address] Mr Imaging Referral ID Status Reason Start Date Expiration Date V isits Requested Visits Authorized [id number] Closed Auto-Generate d Referral 03/18/2022 05/17/2022 1 1 Reason Comments Established Patient MRI results Follow Up MRI results Reason Comments Physical Patient arrived from [facility] on 10/08/21 Diabetes Patient states paren franc HX of DM, patient wants to check if he has it. Knee Pain Left sided pain pres ent x 1+ year, HX of meniscus tear, discuss option (unrecognized sect ion and content) No Status Records Found INFORMATION SOURCE (unrecogn ized section and content) FOR RECORDS PERTAINING TO PATIENTS WHO ARE OR HAVE BEEN ENROLLED IN A CHEMICAL DEPENDENCY/SUBSTANCEABUSE PROGRAM, SOME INFORMATION MAY BE OMITTED. This clinical summary was aggregated from multiple sources. Caution should be exercised in using it in the provision of clinical care. This summary normalizes information from multiple sources, and as a consequence, information in this document may materially change the coding, format and clinical context of patient data. In addition, data may be omitted in some cases. CLINICAL DECISIONS SHOULD BE BASED ON THE PRIMARY CLINICAL RECORDS. [facility]. provides no warranty or guarantee of the accuracy or completeness of information in this document.
== END 2023-07-07 03:33 | disposition home or self-care (01) ==
PROVIDERS: Emergency Provider Emergency Medicine; Visit Provider Emergency Medicine
DX: S83.92XA Sprain of unspecified site of left knee, initial encounter (principal); S00.33XA Contusion of nose, initial encounter; V47.5XXA Car driver injured in collision with fixed or stationary object in traffic accident, initial encounter; W22.11XA Striking against or struck by driver side automobile airbag, initial encounter; Y93.89 Activity, other specified
CPT/HCPCS: 70150; 73560; 99282